=== PATIENT | male | born 1955 | race Caucasian/White ===

== ENCOUNTER 2017-09-17 00:29 | Emergency (ER) | payer SELFPAY ==
[2017-09-17 00:44] VITALS: BP 136/84; PULSE 74; RESP 18; TEMP 98.2; O2SAT 98
[2017-09-17] MEDS ORDERED: Sodium Chloride 0.9% 1,000 ML IV ONE (00:52)
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
== END 2017-09-17 01:25 | disposition home or self-care (01) ==
LOC: C.ER 00:29 → SUPCPDRO 00:29 → C.ER 01:25
DX: M79.651 Pain in right thigh (principal)

== ENCOUNTER 2018-07-11 04:19 | Emergency (ER) | payer MEDICAID, OTHER ==
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
[2018-07-11 07:00] VITALS: BP 132/82; PULSE 80; RESP 20; TEMP 98.7
--- NOTE | 2018-07-11 17:07 | RAD ---
Date of service: 07/11/2018 HISTORY: pain COMPARISON: No prior. FINDINGS: BONES: Alignment maintained. No fracture. DISC SPACES: Normal. SOFT TISSUES: Normal. OTHER FINDINGS: None. IMPRESSION: No evidence of acute fracture or subluxation.
[2018-07-11 19:56] VITALS: O2SAT 96
== END 2018-07-11 06:58 | disposition home or self-care (01) ==
LOC: C.ER 04:19
DX: M54.6 Pain in thoracic spine (principal)
CPT/HCPCS: 72070; 96372; 99283; J1885